=== PATIENT | female | born 1960 | race Caucasian/White ===

== ENCOUNTER 2018-12-13 09:36 | Emergency (ER) | payer OTHER ==
[~2018-12-13] VITALS: Ht 167.6 cm; Wt 77.1 kg
[2018-12-13] MEDS ORDERED: Motrin,Rufen400 MG PO (10:03)
[2018-12-13] MEDS ORDERED: TYLENOL325 M1 PO (10:03)
== END 2018-12-13 10:51 | disposition home or self-care (01) ==
LOC: ED 09:36
DX: M79.621 Pain in right upper arm (principal); F17.200 Nicotine dependence, unspecified, uncomplicated; Z90.710 Acquired absence of both cervix and uterus

== ENCOUNTER 2019-04-21 07:48 | Emergency (ER) | payer OTHER ==
[~2019-04-21] VITALS: Ht 167.6 cm; Wt 72.6 kg
[~2019-04-21 07:48] MED LIST: Motrin,Rufen400 MG PO; TYLENOL325 M1 PO
[2019-04-21] MEDS ORDERED: ALA-CORT28.4 GM T (08:19)
[2019-04-21] MEDS ORDERED: CLARITIN10 MG PO (08:19)
== END 2019-04-21 08:32 | disposition home or self-care (01) ==
LOC: ED 07:48
DX: S40.862A Insect bite (nonvenomous) of left upper arm, initial encounter (principal); S40.861A Insect bite (nonvenomous) of right upper arm, initial encounter; S20.469A Insect bite (nonvenomous) of unspecified back wall of thorax, initial encounter; S30.860A Insect bite (nonvenomous) of lower back and pelvis, initial encounter; F17.200 Nicotine dependence, unspecified, uncomplicated; Z91.040 Latex allergy status; W57.XXXA Bitten or stung by nonvenomous insect and other nonvenomous arthropods, initial encounter; Y93.89 Activity, other specified; Y92.89 Other specified places as the place of occurrence of the external cause; Y99.8 Other external cause status

== ENCOUNTER 2019-07-25 10:30 | Emergency (ER) | payer OTHER ==
[~2019-07-25] VITALS: Ht 167.6 cm; Wt 74.8 kg
[~2019-07-25 10:30] MED LIST changes: +ALA-CORT28.4 GM T; +CLARITIN10 MG PO
[2019-07-25] MEDS ORDERED: ZITHROMAX250 MG PO (12:31)
[2019-07-25] MEDS ORDERED: PREDNISONE50 MG PO (12:31)
[2019-07-25] MEDS ORDERED: TESSALON PERLE100 M1 PO (12:31)
== END 2019-07-25 12:35 | disposition home or self-care (01) ==
LOC: ED 10:30
DX: J20.9 Acute bronchitis, unspecified (principal); E78.5 Hyperlipidemia, unspecified; I10 Essential (primary) hypertension; F17.200 Nicotine dependence, unspecified, uncomplicated; Z90.710 Acquired absence of both cervix and uterus

== ENCOUNTER 2019-10-05 07:23 | Inpatient (IN) | payer OTHER ==
[~2019-10-05] VITALS: Ht 167.6 cm; Wt 80.9 kg
[~2019-10-05 07:23] MED LIST changes: +PREDNISONE50 MG PO; +TESSALON PERLE100 M1 PO; +ZITHROMAX250 MG PO
[2019-10-05 07:31] VITALS: BP 154/71
[2019-10-05 08:10] LABS: BASO % 0.2 % (0.0-1.0); EOS % 0.1 % (1.0-4.0); HEMATOCRIT 44.1 % (37.0-47.0); HEMOGLOBIN 15.2 g/dl (12.0-16.0); LYMPH # 1.9 10*3/uL (1.3-4.4); LYMPH % 13.9 % (27.0-41.0); MEAN CELL VOLUME 93.2 fl (81.0-99.0); MEAN CORPUSCULAR HGB 32.1 pg (27.0-31.0); MEAN CORPUSCULAR HGB CONC 34.5 g/dl (33.0-37.0); MEAN PLATELET VOLUME 11.9 fl (9.6-12.3); MONO # 0.5 10*3/uL (0.1-1.0); MONO % 3.4 % (3.0-9.0); PLATELET COUNT AUTOMATED 271 10*3/uL (130-400); RED BLOOD COUNT 4.73 10*6/uL (4.10-5.10); RED CELL DISTRI WIDTH 12.7 % (0-14.5); WHITE BLOOD COUNT 13.4 10*3/uL (4.8-10.8)
--- NOTE | 2019-10-05 08:23 | NUR ---
SCANT AMOUNT OF STOOL NOTED DURING RECTAL EXAM PER DR BLISS.
[2019-10-05 09:39] LABS: ALBUMIN 3.8 gm/dl (3.1-4.5); BUN 11 mg/dl (7-24); CHLORIDE 105 mmol/L (98-107); CREATININE 0.84 mg/dL (0.55-1.02); POTASSIUM 4.5 mmol/L (3.5-5.1); SGOT/AST 22 IU/L (3-35); SGPT/ALT 23 U/L (12-78); SODIUM 134 mmol/L (136-145); TOTAL PROTEIN 7.8 gm/dL (6.4-8.2)
[2019-10-05 09:40] LABS: ALKALINE PHOSPHATASE 110 U/L (45-117)
--- NOTE | 2019-10-05 10:08 | NUR ---
PT COMPLAINS IN CT OF PAIN AND SWELLING TO IV SITE.
--- NOTE | 2019-10-05 10:22 | NUR ---
AFTER 1 FAILED ATTEPMT AT IV START BY JEM MELCHOR RN PT REFUSES FURTHER ATTEMPTS. EXISTING IV IN RT HAND FLUSHES EASILY WITH 10 ML NS.
--- NOTE | 2019-10-05 11:41 | NUR ---
DR SANTACRUZ IN ROOM AT THIS TIME FOR CONSULT.
[2019-10-05 11:42] VITALS: BP 140/70
[2019-10-05 12:00] VITALS: BP 173/82
--- NOTE | 2019-10-05 12:00 | NUR ---
Time: 1200 A 63 year old FEMALE admitted to 5E under services of NONA DISLA DO. Pt. arrived via bed from ER. Chief complaint: CONSTIPATION, NAUSEA/VOMITING. BHAVANA JENNINGS
[2019-10-05] MEDS ORDERED: IMDUR SA60 M1 PO (12:14)
[2019-10-05] MEDS ORDERED: LIPITOR10 MG PO (12:14)
[2019-10-05] MEDS ORDERED: OXYBUTYNIN5 MG PO (12:15)
[2019-10-05] MEDS ORDERED: VENLAFAXINE37.5 M1 PO (12:15)
--- NOTE | 2019-10-05 12:44 | NUR ---
PT MEDICATED WITH APRESOLINE IV FOR BP SYS >160 AND MORPHINE IV FOR C/O ABDOMINAL PAIN. CALL LIGHT IN [facility]. WILL MONITOR
--- NOTE | 2019-10-05 13:39 | NUR ---
PT REQUESTED AND WAS MEDICATED WITH ZOFRAN IV FOR C/O NAUSEA. CALL LIGHT IN REACH. WILL MONITOR
[2019-10-05 15:11] VITALS: BP 154/68
--- NOTE | 2019-10-05 15:12 | NUR ---
MEDICATIONS EFFECTIVE PER PT.
[2019-10-05 16:00] VITALS: BP 150/61
[2019-10-05 20:00] VITALS: BP 154/65
[2019-10-06] VITALS: BP 135/58
[2019-10-06 06:30] LABS: BASO # 0.1 10*3/uL (0.0-0.1); BASO % 0.4 % (0.0-1.0); EOS % 0.2 % (1.0-4.0); HEMOGLOBIN 15.3 g/dl (12.0-16.0); LYMPH # 2.1 10*3/uL (1.3-4.4); LYMPH % 12.2 % (27.0-41.0); MEAN CELL VOLUME 93.9 fl (81.0-99.0); MEAN CORPUSCULAR HGB 31.9 pg (27.0-31.0); MEAN PLATELET VOLUME 11.7 fl (9.6-12.3); MONO # 1.3 10*3/uL (0.1-1.0); MONO % 7.3 % (3.0-9.0); NEUT # 13.5 10*3/uL (2.3-7.9); NEUT % 79.4 % (47.0-73.0); PLATELET COUNT AUTOMATED 237 10*3/uL (130-400); RED BLOOD COUNT 4.79 10*6/uL (4.10-5.10)
[2019-10-06 06:43] LABS: ACT PARTIAL THROMBO TIME 26.5 SECONDS (20.0-32.1); INTERNATIONAL NORM RATIO 0.9 (2.0-3.5)
[2019-10-06 07:12] LABS: ALBUMIN 3.3 gm/dl (3.1-4.5); ALKALINE PHOSPHATASE 95 U/L (45-117); BUN 12 mg/dl (7-24); CHLORIDE 107 mmol/L (98-107); CHOLESTEROL 159 mg/dL (<200); CREATININE 0.79 mg/dL (0.55-1.02); FREE T4 1.07 ng/dl (0.76-1.46); HDL CHOLESTEROL 56 mg/dl (40-60); LDL CHOLESTEROL 91 mg/dL (9-159); PHOSPHOROUS 3.4 mg/dL (2.5-4.9); POTASSIUM 3.8 mmol/L (3.5-5.1); SGOT/AST 14 IU/L (3-35); SGPT/ALT 19 U/L (12-78); SODIUM 139 mmol/L (136-145); TOTAL PROTEIN 6.8 gm/dL (6.4-8.2); TRIGLYCERIDES 61 mg/dl (<150); VLDL CHOLESTEROL 12 mg/dL (6-40)
[2019-10-06 07:30] LABS: VITAMIN D, 25-HYDROXY 27.4 ng/mL (30-100)
[2019-10-06 08:00] VITALS: BP 128/68
--- NOTE | 2019-10-06 09:16 | NUR ---
Pt requested and was medicated with Morphine IV for c/o abdominal pain. IV fluids infusing per orders. Resp easy and nonlabored on RA. call light in reach. will monitor
--- NOTE | 2019-10-06 09:36 | NUR ---
Pt ambulating in halls. Will monitor
[2019-10-06 12:00] VITALS: BP 126/61
[2019-10-06 16:00] VITALS: BP 126/71
--- NOTE | 2019-10-06 16:50 | NUR ---
DR BLANK CALLED AND NOTIFIED RE: INCREASE IN ABDOMINAL DISTENTION. PT DENIES NAUSEA/PAIN/FLATUS. DR BLANK STATES TO KEEP MONITORING.
--- NOTE | 2019-10-06 16:57 | NUR ---
PT AMBULATED TO THE DESK AND STATES SHE HAS PASSED A LARGE AMOUNT OF GAS. PT AMBULATING IN THE HALLS, WILL MONITOR
--- NOTE | 2019-10-06 16:59 | NUR ---
DR SANTACRUZ CALLED RE: INCREASE IN ABDOMINAL DISTENTION. NOTIFIED NO NAUSEA/PAIN/FLATUS PER PATIENT. HE STATES TO KEEP MONITORING
--- NOTE | 2019-10-06 17:02 | NUR ---
PT AMBULATED TO DESK AND STATES SHE PASSED A LARGE AMOUNT OF GAS. PT CONTINUES TO WALK IN THE HALLS. WILL MONITOR
--- NOTE | 2019-10-06 18:57 | NUR ---
PT SLEEPING, NO DISTRESS NOTED. RESP EASY AND NONLABORED ON RA. CALL LIGHT IN REACH. WILL MONITOR
[2019-10-06 20:00] VITALS: BP 146/72
--- NOTE | 2019-10-06 20:17 | NUR ---
24 HR chart check completed.
--- NOTE | 2019-10-06 20:32 | NUR ---
Patient is AAOX3, resting in bed with easy and regular respers on room air watching TV. Assessment is complete, patient c/o nausea with dry heaves. Bed is low, locked, and call light is within reach. Call placed to Dr. Elizabeth regarding nausea. See new order.
--- NOTE | 2019-10-06 21:30 | NUR ---
One time dose of phenergan given per order. Patient tolerated well, call light is within reach, will monitor effect.
--- NOTE | 2019-10-06 23:00 | NUR ---
ASSUMED CARE FOR THIS PT AT THIS TIME. C/O NAUSEA BUT STATES IT HAS DECREASED. C/O UPPER ABD PAIN. PT TEACHING GIVEN ON PRN PAIN MED TIMES AND WHITE BOARD UPDATED. PT DENIES PASSING ANY FLATUS TODAY. ESEQUIEL BSX4. CALL LIGHT IN REACH.
[2019-10-07] VITALS: BP 135/66
--- NOTE | 2019-10-07 06:40 | NUR ---
PT MEDICATED W/DULCOLAX SUPPOSITORY FOR CONSTIPATION. PT BELCHED W/SMALL AMOUNT OF BROWN LIQUID. PT STATES SHE STILL HAS NAUSEA AFTER ZOFRAN ADMINISTRATION. WILL CONTINUE TO MONITOR. CALL LIGHT IN REACH.
[2019-10-07 06:53] LABS: BASO # 0.1 10*3/uL (0.0-0.1); BASO % 0.4 % (0.0-1.0); EOS % 0.1 % (1.0-4.0); HEMATOCRIT 42.8 % (37.0-47.0); HEMOGLOBIN 14.2 g/dl (12.0-16.0); LYMPH # 2.1 10*3/uL (1.3-4.4); LYMPH % 13.5 % (27.0-41.0); MEAN CELL VOLUME 95.3 fl (81.0-99.0); MEAN CORPUSCULAR HGB 31.6 pg (27.0-31.0); MEAN CORPUSCULAR HGB CONC 33.2 g/dl (33.0-37.0); MEAN PLATELET VOLUME 11.8 fl (9.6-12.3); MONO % 6.1 % (3.0-9.0); NEUT # 12.6 10*3/uL (2.3-7.9); NEUT % 79.5 % (47.0-73.0); PLATELET COUNT AUTOMATED 205 10*3/uL (130-400); RED BLOOD COUNT 4.49 10*6/uL (4.10-5.10); RED CELL DISTRI WIDTH 12.9 % (0-14.5); WHITE BLOOD COUNT 15.8 10*3/uL (4.8-10.8)
[2019-10-07 07:03] LABS: BUN 13 mg/dl (7-24); CHLORIDE 108 mmol/L (98-107); CREATININE 0.77 mg/dL (0.55-1.02); POTASSIUM 3.8 mmol/L (3.5-5.1); SODIUM 139 mmol/L (136-145)
--- NOTE | 2019-10-07 07:15 | NUR ---
ARRIVED ON SHIFT, INTRODUCED TO PATIENT, BED IN LOW POSITION, WHEEL LOCKS ENGAGED, SIDE RAILS UP X 2 FOR TURNING AND REPOSITIONING, CALL LIGHT WITIN REACH, NO NEEDS VOICED AT THIS TIME, WHITE BOARD UPDATED.
[2019-10-07 08:00] VITALS: BP 136/67
--- NOTE | 2019-10-07 09:00 | NUR ---
Commercial Electrician in to see patient. She is currently not in her room. Will follow up at a later time.
--- NOTE | 2019-10-07 09:55 | NUR ---
Shift chart check completed.
--- NOTE | 2019-10-07 11:21 | NUR ---
PER DOCTOR NOAM, MAKE PATIENT CLEAR LIQUID FOR LUNCH, THEN FULL LIQUID FOR DINNER AND REGULAR FOR BREAKFAST.
[2019-10-07 12:00] VITALS: BP 134/70
--- NOTE | 2019-10-07 12:29 | NUR ---
Nutritional Support Services Note: Pt states she is feeling better. Clear liquid diet started for lunch, with full liquid diet for dinner tonight. Diet will advance to regular for breakfast if tolerated. Dx of SBO. Will continue to follow. Humaira Abbott Rdn Ld
--- NOTE | 2019-10-07 15:00 | NUR ---
Police Booking Officer in to talk to patient. Patient states lives at home with her daughter. There are steps in the home. Physician: Poppy Eaton Pharmacy: [facility] Home health services: none Patient's level of ADLs: INDEPENDENT Patient has working utilities: yes DME: none Follow-up physician's appointment after d/c: will be made by the hospitalist nurse director upon discharge Does patient want to access PORTAL?: no Discharge plan discussed with patient. She lives at home with her daughter. She is independent in her ADLs and ambulation. Discussed home health care services and she denies any home needs at this time. When medically stable she will be discharged to home. She states her daughter will provide transportation on discharge. SONY FONSECA
[2019-10-07 16:00] VITALS: BP 161/63
[2019-10-07 20:00] VITALS: BP 144/67
--- NOTE | 2019-10-07 20:00 | NUR ---
PT MEDICATED W/MORPHINE FOR C/O UPPER ABD PAIN 03/09. MODERATE AMOUNT OF BROWN LIQUID EMESIS NOTED IN TRASH CAN. PT CONTINUES TO C/O NAUSEA. ZOFRAN REMAINS SCHEDULED. PT ENCOURAGED TO AMBULATE. CALL LIGHT IN REACH.
--- NOTE | 2019-10-07 23:02 | NUR ---
PT STATES THAT MORPHINE WAS EFFECTIVE FOR ABD PAIN RELIEF. PT AWAKE IN BED WATCHING TV. CALL LIGHT IN REACH.
[2019-10-08] VITALS: BP 165/79
--- NOTE | 2019-10-08 04:40 | NUR ---
24 HR chart check completed.
--- NOTE | 2019-10-08 04:59 | NUR ---
PT MEDICATED W/MORPHINE FOR C/O ABD PAIN 03/09. PT AWAKE IN BED WATCHING TV. MEDICATED W/SCHEDULED IVP ZOFRAN. PT HAD ANOTHER EMESIS OF BROWN LIQUID. PT ADVISED TO LET DR. SANTACRUZ KNOW OF CONTINUED VOMITING AND IF SHE HAS ANY FURTHER EPISODES OF EMESIS TO SAVE SOME FOR TO SEE. PT ENCOURAGED TO AMBULATE TO EXPEL GAS. PT COMPLIANT.
[2019-10-08 06:24] LABS: BASO % 0.3 % (0.0-1.0); EOS % 0.3 % (1.0-4.0); HEMATOCRIT 42.4 % (37.0-47.0); LYMPH # 1.4 10*3/uL (1.3-4.4); MEAN CELL VOLUME 95.7 fl (81.0-99.0); MEAN CORPUSCULAR HGB 31.6 pg (27.0-31.0); MEAN PLATELET VOLUME 11.9 fl (9.6-12.3); MONO # 0.6 10*3/uL (0.1-1.0); MONO % 4.6 % (3.0-9.0); NEUT # 11.5 10*3/uL (2.3-7.9); NEUT % 84.6 % (47.0-73.0); PLATELET COUNT AUTOMATED 203 10*3/uL (130-400); RED BLOOD COUNT 4.43 10*6/uL (4.10-5.10); RED CELL DISTRI WIDTH 12.7 % (0-14.5); WHITE BLOOD COUNT 13.6 10*3/uL (4.8-10.8)
[2019-10-08 08:00] VITALS: BP 138/64
--- NOTE | 2019-10-08 08:00 | NUR ---
Patient resting quietly with no c/o discomfort. Respirations easy and regular. Vital signs stable. No overt distress. DESI CHRISTINE
--- NOTE | 2019-10-08 10:45 | NUR ---
Nutritional Support Services Note: Pt not tolerating PO diet well. Emesis noted at this time. Back to NPO status. Will follow for tolerance to PO diet. LIZZY Ryan video production intern
[2019-10-08 12:00] VITALS: BP 147/56
[2019-10-08 16:00] VITALS: BP 163/68
--- NOTE | 2019-10-08 16:00 | NUR ---
Patient resting quietly with no c/o discomfort. Respirations easy and regular. Vital signs stable. No overt distress. DESI CHRISTINE
[2019-10-08 20:00] VITALS: BP 157/77
--- NOTE | 2019-10-08 20:00 | NUR ---
AWAKE & ALERT RESTING IN BED. VOICES NO C/O AT THIS TIME. CALL LIGHT WITHIN REACH.
[2019-10-09] VITALS (12 sets, daily range): BP systolic 138–167; BP diastolic 57–81
--- NOTE | 2019-10-09 00:15 | NUR ---
MEDICATED WITH ZOFRAN PER STRAIGHT ORDER. PT. VOICES NO OTHER C/O AT THIS TIME. IV SITE ASYMPTOMATIC. CALL LIGHT WITHIN REACH.
--- NOTE | 2019-10-09 06:00 | NUR ---
MEDICATED WITH ZOFRAN PER STRAIGHT ORDER. PT. STATES THAT SHE IS NO LONGER FEELING NAUSEOUS & IS PASSING GAS. HAS HAD NO BOWEL MOVEMENT YET. PT. VOICES NO OTHER C/O AT THIS TIME. CALL LIGHT WITHIN REACH.
[2019-10-09 06:31] LABS: BASO # 0.1 10*3/uL (0.0-0.1); BASO % 0.7 % (0.0-1.0); EOS # 0.2 10*3/uL (0.0-0.4); EOS % 1.5 % (1.0-4.0); HEMATOCRIT 37.9 % (37.0-47.0); HEMOGLOBIN 12.6 g/dl (12.0-16.0); LYMPH # 2.4 10*3/uL (1.3-4.4); LYMPH % 23.8 % (27.0-41.0); MEAN CELL VOLUME 95.7 fl (81.0-99.0); MEAN CORPUSCULAR HGB 31.8 pg (27.0-31.0); MEAN CORPUSCULAR HGB CONC 33.2 g/dl (33.0-37.0); MEAN PLATELET VOLUME 12.2 fl (9.6-12.3); MONO # 0.7 10*3/uL (0.1-1.0); MONO % 6.7 % (3.0-9.0); NEUT # 6.7 10*3/uL (2.3-7.9); NEUT % 66.8 % (47.0-73.0); PLATELET COUNT AUTOMATED 195 10*3/uL (130-400); RED BLOOD COUNT 3.96 10*6/uL (4.10-5.10); RED CELL DISTRI WIDTH 12.6 % (0-14.5)
[2019-10-09 06:47] LABS: BUN 14 mg/dl (7-24); CHLORIDE 110 mmol/L (98-107); CREATININE 0.71 mg/dL (0.55-1.02); POTASSIUM 3.4 mmol/L (3.5-5.1); SODIUM 143 mmol/L (136-145)
--- NOTE | 2019-10-09 11:09 | NUR ---
ROUTINE ZOFRAN GIVEN FOR VOMITTING.
--- NOTE | 2019-10-09 13:00 | NUR ---
DR SANTACRUZ NOTIFIED OF CT RESULTS. X1 PHENERGAN GIVEN ORDERED.
--- NOTE | 2019-10-09 18:00 | NUR ---
REPOSITIONED FOR COMFORT. VVS. NG TO LIS. PATENT FOR GREEN. MIDLINE DRESSING TO ABDOMEN D/I.
[2019-10-10] VITALS: BP 145/61
[2019-10-10 06:07] LABS: BASO # 0.1 10*3/uL (0.0-0.1); BASO % 0.4 % (0.0-1.0); EOS # 0.1 10*3/uL (0.0-0.4); EOS % 1.1 % (1.0-4.0); HEMATOCRIT 40.1 % (37.0-47.0); HEMOGLOBIN 13.6 g/dl (12.0-16.0); LYMPH # 1.4 10*3/uL (1.3-4.4); MEAN CELL VOLUME 96.2 fl (81.0-99.0); MEAN CORPUSCULAR HGB 32.6 pg (27.0-31.0); MEAN CORPUSCULAR HGB CONC 33.9 g/dl (33.0-37.0); MONO # 0.9 10*3/uL (0.1-1.0); MONO % 7.5 % (3.0-9.0); NEUT # 9.4 10*3/uL (2.3-7.9); NEUT % 78.7 % (47.0-73.0); PLATELET COUNT AUTOMATED 200 10*3/uL (130-400); RED BLOOD COUNT 4.17 10*6/uL (4.10-5.10); RED CELL DISTRI WIDTH 12.9 % (0-14.5)
--- NOTE | 2019-10-10 06:08 | NUR ---
PT RATES PAIN 9/10. MORPHINE PROVIDED PER PRN ORDER.
[2019-10-10 06:21] LABS: ALBUMIN 2.7 gm/dl (3.1-4.5); ALKALINE PHOSPHATASE 58 U/L (45-117); BUN 11 mg/dl (7-24); CHLORIDE 112 mmol/L (98-107); CREATININE 0.74 mg/dL (0.55-1.02); POTASSIUM 3.8 mmol/L (3.5-5.1); SGOT/AST 15 IU/L (3-35); SGPT/ALT 16 U/L (12-78); SODIUM 144 mmol/L (136-145); TOTAL PROTEIN 5.6 gm/dL (6.4-8.2)
[2019-10-10 08:00] VITALS: BP 133/71; BP 138/68
--- NOTE | 2019-10-10 09:00 | NUR ---
Film Writer in to see patient. She is sitting on the edge of her bed without distress noted. Her daughter is at her bedside. When medically stable she will be discharged to home. She denies any home needs and her daughter states she is able to take care of any home needs she may have.
[2019-10-10 12:00] VITALS: BP 143/60
--- NOTE | 2019-10-10 13:00 | NUR ---
Bañuelos removed as per Dr. Frausto's instructions.
--- NOTE | 2019-10-10 15:56 | NUR ---
Up ambulating in the [place].
[2019-10-10 16:00] VITALS: BP 143/66
--- NOTE | 2019-10-10 16:10 | NUR ---
Sitting up in chair after walking.
[2019-10-10 20:00] VITALS: BP 144/54
--- NOTE | 2019-10-10 20:42 | NUR ---
PRN MORPHINE GIVEN FOR PT COMPLAINTS OF ABDOMINAL PAIN RATING IT 8/10. CALL LIGHT WITHIN REACH, WILL MONITOR
--- NOTE | 2019-10-10 21:00 | NUR ---
PATIENT DISCONNECTED AND AMBULATED TO BATHROOM AT THIS TIME
--- NOTE | 2019-10-10 22:00 | NUR ---
PT STATES MORPHINE EFFECTIVE FOR PAIN
[2019-10-11] VITALS: BP 140/64
--- NOTE | 2019-10-11 02:05 | NUR ---
PATIENT HAS INCISIONAL PAIN BUT IT IS TOLERABLE PER PT. NO NAUSEA REPORTED BY PATIENT. PATIENT CONTINUES TO TOLERATE ICE CHIPS. CALL LIGHT WITHIN REACH,WILL MONITOR
--- NOTE | 2019-10-11 02:18 | NUR ---
24 HR chart check completed.
--- NOTE | 2019-10-11 04:17 | NUR ---
PATIENT DISCONNECTED FROM FLUIDS AND NG TUBE TO GO TO THE BATHROOM. CONTINUES TO PAS GAS, HAS NO BOWEL MOVEMENT YET. PATIENT REQUESTED TO SIT UP IN CHAIR AT THIS TIME. CALL LIGHT LEFT WITHIN REACH, WILL MONITOR
--- NOTE | 2019-10-11 04:18 | NUR ---
10/10/19 22:00 PT SLEEPINGONRA. SPO2 83% PT PLACED ON 2 L NC. SPO2 INCREASED TO 94% RN AWARE
--- NOTE | 2019-10-11 04:30 | NUR ---
NOTIFIED DR. LONG AT THIS TIME THAT PATIENT DEVELOPED A MOIST COUGH/LEFT SIDED SORE THROAT AND PAINFUL EAR. PATIENT HAS SCATTERED RONCHI THROUGHOUT. CXR ORDERED
--- NOTE | 2019-10-11 06:16 | NUR ---
DR. LONG NOTIFIED OF CXR. DISCONTINUED FLUIDS
--- NOTE | 2019-10-11 07:02 | NUR ---
NOTIFIED DR. SANTACRUZ OF PATIENTS CXR RESULTS AND PATIENTS REQUEST FOR A DIET AND THE NG TUBE TO BE OUT. ALSO NOTIFIED HIM THAT THE FLUIDS WERE DISCONTINUED PER . HE STATED WHEN HE GETS HERE HE WILL TAKE CARE OF THE NG TUBE AND THE PATIENTS DIET
[2019-10-11 07:03] LABS: ALBUMIN 2.5 gm/dl (3.1-4.5); ALKALINE PHOSPHATASE 56 U/L (45-117); BUN 8 mg/dl (7-24); CHLORIDE 108 mmol/L (98-107); CREATININE 0.62 mg/dL (0.55-1.02); PHOSPHOROUS 2.8 mg/dL (2.5-4.9); POTASSIUM 3.3 mmol/L (3.5-5.1); SGOT/AST 27 IU/L (3-35); SGPT/ALT 21 U/L (12-78); SODIUM 140 mmol/L (136-145); TOTAL PROTEIN 5.8 gm/dL (6.4-8.2)
[2019-10-11 07:23] LABS: BASO # 0.1 10*3/uL (0.0-0.1); BASO % 0.5 % (0.0-1.0); EOS # 0.4 10*3/uL (0.0-0.4); EOS % 3.3 % (1.0-4.0); HEMATOCRIT 38.2 % (37.0-47.0); HEMOGLOBIN 12.5 g/dl (12.0-16.0); LYMPH # 1.6 10*3/uL (1.3-4.4); LYMPH % 15.1 % (27.0-41.0); MEAN CELL VOLUME 95.7 fl (81.0-99.0); MEAN CORPUSCULAR HGB 31.3 pg (27.0-31.0); MEAN CORPUSCULAR HGB CONC 32.7 g/dl (33.0-37.0); MEAN PLATELET VOLUME 12.4 fl (9.6-12.3); MONO % 8.9 % (3.0-9.0); NEUT # 7.7 10*3/uL (2.3-7.9); NEUT % 71.9 % (47.0-73.0); PLATELET COUNT AUTOMATED 198 10*3/uL (130-400); RED BLOOD COUNT 3.99 10*6/uL (4.10-5.10); RED CELL DISTRI WIDTH 12.9 % (0-14.5); WHITE BLOOD COUNT 10.7 10*3/uL (4.8-10.8)
--- NOTE | 2019-10-11 07:35 | NUR ---
DR. Frausto in and examined pt. States pt may be started on clear liquids, to remove NG, and to stop fluids.
--- NOTE | 2019-10-11 07:40 | NUR ---
NG tube removed at this time.
--- NOTE | 2019-10-11 07:45 | NUR ---
Pt up ambulatory in [place].
[2019-10-11 08:00] VITALS: BP 131/63
--- NOTE | 2019-10-11 09:00 | NUR ---
Vtc Technician in to see patient. No new needs or request at this time. She denies any home needs. When medically stable she will be discharged to home.
--- NOTE | 2019-10-11 11:45 | NUR ---
DR. Frausto in and saw pt again. States that pt diet can remain full liquid today and they start a regular diet in am. If pt tolerates diet she may be dc tomorrow.
[2019-10-11 12:00] VITALS: BP 134/77
--- NOTE | 2019-10-11 13:15 | NUR ---
States that morphine was effective for pain.
--- NOTE | 2019-10-11 15:38 | NUR ---
Called to room to discuss Medicaid with patient. Patient states her question was regarding home health care. She states she doesn't need home health care at this time that her daughter is able to help her. Discussed getting her medications filled here at the hospital pharmacy.
[2019-10-11 16:00] VITALS: BP 121/67; BP 121/84
[2019-10-11 20:00] VITALS: BP 127/66
[2019-10-12] VITALS: BP 105/52
[2019-10-12 06:25] LABS: BASO % 0.4 % (0.0-1.0); EOS # 0.5 10*3/uL (0.0-0.4); EOS % 4.5 % (1.0-4.0); HEMATOCRIT 36.8 % (37.0-47.0); HEMOGLOBIN 12.5 g/dl (12.0-16.0); LYMPH # 2.4 10*3/uL (1.3-4.4); LYMPH % 23.5 % (27.0-41.0); MEAN CELL VOLUME 93.4 fl (81.0-99.0); MEAN CORPUSCULAR HGB 31.7 pg (27.0-31.0); MEAN PLATELET VOLUME 12.2 fl (9.6-12.3); MONO # 0.7 10*3/uL (0.1-1.0); MONO % 7.4 % (3.0-9.0); NEUT # 6.4 10*3/uL (2.3-7.9); NEUT % 63.9 % (47.0-73.0); PLATELET COUNT AUTOMATED 216 10*3/uL (130-400); RED BLOOD COUNT 3.94 10*6/uL (4.10-5.10); RED CELL DISTRI WIDTH 12.6 % (0-14.5)
[2019-10-12 06:43] LABS: BUN 6 mg/dl (7-24); CHLORIDE 102 mmol/L (98-107); POTASSIUM 3.1 mmol/L (3.5-5.1); SODIUM 137 mmol/L (136-145)
[2019-10-12 08:00] VITALS: BP 122/54
--- NOTE | 2019-10-12 08:08 | NUR ---
MEDICATED WITH PRN IV MORPHINE FOR RIGHT SIDE ABDOMINAL PAIN.
--- NOTE | 2019-10-12 09:00 | NUR ---
PRN IV MORPHINE EFFECTIVE, PER PATIENT.
--- NOTE | 2019-10-12 11:23 | NUR ---
Discharge instructions reviewed with patient/family. Patient receptive and verbalizes understanding. Follow-up care arranged. Written instructions given to patient/family. PATIENT DISCHARGED TO [facility], AMBULATORY, FOR TRANSPORT HOME BY PRIVATE VEHICLE WITH HER DAUGHTER. JOSE LUIS HUTCHINS
== END 2019-10-12 11:20 | disposition home or self-care (01) | DRG 224 ==
LOC: ED 07:23 → 5E 11:48
PROVIDERS: Emergency Medicine; Family Medicine; Internal Medicine; Surgery; ADMIT Internal Medicine
PROC: 0DN80ZZ Release Small Intestine, Open Approach (ICD-10-PCS; principal; 2019-10-09)
DX: K56.600 Partial intestinal obstruction, unspecified as to cause (principal); E87.1 Hypo-osmolality and hyponatremia; R73.9 Hyperglycemia, unspecified; F17.210 Nicotine dependence, cigarettes, uncomplicated; I10 Essential (primary) hypertension; E78.5 Hyperlipidemia, unspecified; I35.0 Nonrheumatic aortic (valve) stenosis; K58.9 Irritable bowel syndrome, unspecified; N32.81 Overactive bladder; F32.9 Major depressive disorder, single episode, unspecified; J90 Pleural effusion, not elsewhere classified; Z90.49 Acquired absence of other specified parts of digestive tract; Z90.710 Acquired absence of both cervix and uterus; Z80.8 Family history of malignant neoplasm of other organs or systems; Z68.28 Body mass index [BMI] 28.0-28.9, adult; R18.8 Other ascites; J98.11 Atelectasis

== ENCOUNTER 2019-10-17 14:38 | Emergency (ER) | payer OTHER ==
[~2019-10-17] VITALS: Ht 167.6 cm; Wt 77.1 kg
[~2019-10-17 14:38] MED LIST changes: +IMDUR SA60 M1 PO; +LIPITOR10 MG PO; +OXYBUTYNIN5 MG PO; +VENLAFAXINE37.5 M1 PO
== END 2019-10-17 15:13 | disposition home or self-care (01) ==
LOC: ED 14:38
DX: Z48.03 Encounter for change or removal of drains (principal)

== ENCOUNTER 2019-10-24 18:47 | Emergency (ER) | payer OTHER ==
[~2019-10-24] VITALS: Ht 167.6 cm; Wt 77.1 kg
[2019-10-24 20:36] LABS: BASO # 0.1 10*3/uL (0.0-0.1); BASO % 0.8 % (0.0-1.0); EOS # 0.6 10*3/uL (0.0-0.4); EOS % 4.8 % (1.0-4.0); HEMATOCRIT 40.5 % (37.0-47.0); HEMOGLOBIN 13.5 g/dl (12.0-16.0); LYMPH # 2.9 10*3/uL (1.3-4.4); LYMPH % 24.2 % (27.0-41.0); MEAN CORPUSCULAR HGB CONC 33.3 g/dl (33.0-37.0); MEAN PLATELET VOLUME 10.7 fl (9.6-12.3); MONO # 0.6 10*3/uL (0.1-1.0); MONO % 5.2 % (3.0-9.0); NEUT # 7.8 10*3/uL (2.3-7.9); NEUT % 64.7 % (47.0-73.0); PLATELET COUNT AUTOMATED 404 10*3/uL (130-400); RED BLOOD COUNT 4.22 10*6/uL (4.10-5.10); RED CELL DISTRI WIDTH 13.2 % (0-14.5); WHITE BLOOD COUNT 12.1 10*3/uL (4.8-10.8)
[2019-10-24 20:52] LABS: ALBUMIN 2.9 gm/dl (3.1-4.5); ALKALINE PHOSPHATASE 136 U/L (45-117); BUN 11 mg/dl (7-24); CHLORIDE 106 mmol/L (98-107); CREATININE 0.76 mg/dL (0.55-1.02); POTASSIUM 3.8 mmol/L (3.5-5.1); SGOT/AST 18 IU/L (3-35); SGPT/ALT 35 U/L (12-78); SODIUM 138 mmol/L (136-145); TOTAL PROTEIN 7.3 gm/dL (6.4-8.2)
[2019-10-24 20:55] LABS: BILIRUBIN NEGATIVE (NEGATIVE); BLOOD TRACE-INTACT (NEGATIVE); CLARITY CLEAR (CLEAR); COLOR YELLOW (YELLOW); GLUCOSE NEGATIVE (NEGATIVE); KETONE NEGATIVE (NEGATIVE); SPECIFIC GRAVITY 1.015 (1.005-1.030)
[2019-10-24 20:56] LABS: LEUKO ESTERASE 1+ (NEGATIVE); NITRITE NEGATIVE (NEGATIVE); RBC 0-2 rbc/hpf (0-2); UROBILINOGEN 0.2 E.U./dl (0.2-1.0)
[2019-10-24 20:57] LABS: BACTERIA TRACE
[2019-10-24] MEDS ORDERED: CEPHALEXIN500 M1 PO (22:23)
== END 2019-10-24 22:45 ==
LOC: ED 18:47
PROVIDERS: Emergency Medicine
DX: L03.311 Cellulitis of abdominal wall (principal); E78.5 Hyperlipidemia, unspecified; F17.210 Nicotine dependence, cigarettes, uncomplicated; Z79.899 Other long term (current) drug therapy

== ENCOUNTER → 2024-05-07 | Outpatient (CLI) | payer OTHER ==
[~2024-05-07] MED LIST changes: +CEPHALEXIN500 M1 PO; +CIPRO500 MG PO
== END | disposition home or self-care (01) ==
LOC: RAD 12:18
PROVIDERS: ATTEND Nurse Practitioner Family
DX: M54.50 Low back pain, unspecified (principal)

== ENCOUNTER → 2024-08-16 | Outpatient (CLI) | payer OTHER | END | disposition home or self-care (01) | LOC: RAD 08-05 09:30 → CT 08-05 10:00 → RAD 10:30 | PROVIDERS: ATTEND Nurse Practitioner Family | DX: Z12.2 Encounter for screening for malignant neoplasm of respiratory organs (principal); Z13.820 Encounter for screening for osteoporosis; M81.0 Age-related osteoporosis without current pathological fracture; F17.219 Nicotine dependence, cigarettes, with unspecified nicotine-induced disorders ==

== ENCOUNTER → 2024-08-27 | Outpatient (CLI) | payer OTHER ==
[~2024-08-27] MED LIST changes: +Albuterol Sulfate 2.5 MG/3 ML VIAL NEB ONE
== END | disposition home or self-care (01) ==
LOC: CARD 12:00
PROVIDERS: ATTEND Nurse Practitioner Family
DX: I08.0 Rheumatic disorders of both mitral and aortic valves (principal); R01.1 Cardiac murmur, unspecified; R00.2 Palpitations; R06.09 Other forms of dyspnea; F17.219 Nicotine dependence, cigarettes, with unspecified nicotine-induced disorders; J44.89 Other specified chronic obstructive pulmonary disease

== ENCOUNTER → 2024-10-17 | Outpatient (CLI) | payer MEDICARE ==
[~2024-10-17] MED LIST changes: -Albuterol Sulfate 2.5 MG/3 ML VIAL NEB ONE; +Regadenoson 0.4 MG/5 ML SYR IV ONE; +Technetium Tc 99M Tetrofosmi 0.23 MG KIT IJ SCH
== END | disposition home or self-care (01) ==
LOC: CARD 02:19
PROVIDERS: ATTEND Internal Medicine Cardiovascular Disease
DX: R07.89 Other chest pain (principal); R06.02 Shortness of breath; I10 Essential (primary) hypertension; F17.200 Nicotine dependence, unspecified, uncomplicated

== ENCOUNTER 2025-05-06 18:31 | Emergency (ER) | payer MEDICARE ==
[~2025-05-06] VITALS: Ht 167.6 cm; Wt 75.7 kg
[~2025-05-06 18:31] MED LIST changes: -Regadenoson 0.4 MG/5 ML SYR IV ONE; -Technetium Tc 99M Tetrofosmi 0.23 MG KIT IJ SCH
[2025-05-06] MEDS ORDERED: LISSAMINE GREEN 1.5 MG STRIP OP ONE (18:50)
[2025-05-06] MEDS ORDERED: Tetracaine Hydrochloride 0.5% 4 ML BOT OPH ONE (18:50)
[2025-05-06] MEDS ORDERED: ERYTHROMYCIN OPH1 GM OPH (19:35)
[2025-05-06] MEDS ORDERED: ERYTHROMYCIN 1 GM TUBE OPH ONE (19:40)
== END 2025-05-06 19:49 | disposition home or self-care (01) ==
LOC: ED 18:31
DX: S05.01XA Injury of conjunctiva and corneal abrasion without foreign body, right eye, initial encounter (principal); F32.A Depression, unspecified; I10 Essential (primary) hypertension; E78.5 Hyperlipidemia, unspecified; I11.0 Hypertensive heart disease with heart failure; I50.9 Heart failure, unspecified; Z87.440 Personal history of urinary (tract) infections; W19.XXXA Unspecified fall, initial encounter; Y93.89 Activity, other specified; Y92.89 Other specified places as the place of occurrence of the external cause; Y99.8 Other external cause status